=== PATIENT | female | born 1985 | race Hispanic/Latino ===

== ENCOUNTER 2017-05-08 01:04 | Inpatient (IN) | payer MEDICAID, OTHER, SELFPAY ==
[2017-05-08] MEDS ORDERED: Fentanyl 4 mcg/Marc 0.1% Cadd 100 ML ONE (01:42)
[2017-05-08] MEDS ORDERED: Ondansetron HCl/PF 4 MG/2 ML Vial IVP PRN ×2 (01:47→03:17)
[2017-05-08] MEDS ORDERED: Acetaminophen 500 MG TAB PO PRN (01:47)
[2017-05-08] MEDS ORDERED: LR / Pitocin 40 units/1000 ml 1,000 ML IV PRN (01:47)
[2017-05-08] MEDS ORDERED: Lidocaine 1% (PF) 30 ML VIAL SC PRN (01:47)
[2017-05-08] MEDS ORDERED: Ibuprofen 800 MG TAB PO PRN (01:47)
[2017-05-08] MEDS ORDERED: Promethazine HCl 25 MG/ML VIAL IM PRN ×2 (01:47→03:17)
[2017-05-08 01:56] VITALS: BMI 36.6
[2017-05-08] MEDS ORDERED: Lactated Ringer's 1,000 ML IV SCH (02:00)
[2017-05-08 02:23] LABS: Hematocrit 35.7 % (36.0-47.0); Mean Platelet Volume 9.3 fL (7.4-10.4); White Blood Cell (WBC) Count 8.6 thou/uL (4.8-10.8)
[2017-05-08] MEDS ORDERED: Acetaminophen 325 MG TAB PO PRN (03:17)
[2017-05-08] MEDS ORDERED: ePHEDrine/0.9% NaCl/PF SYRINGE 50 mg/10 ml SLOW IVP PRN (03:17)
[2017-05-08] MEDS ORDERED: Eucerin (Mineral Oil/Petrolatum,White) 30 gm Jar TOP PRN (03:17)
[2017-05-08] MEDS ORDERED: Lactated Ringer's 500 ML IV PRN (03:17)
[2017-05-08] MEDS ORDERED: diphenhydrAMINE 50 MG/ML VIAL IVP PRN (03:17)
[2017-05-08] MEDS ORDERED: Naloxone HCl 0.4 mg/ml Vial IVP PRN ×2 (03:17)
[2017-05-08] MEDS ORDERED: Fentanyl 4mcg/Marcaine 0.1% Cassette 100 ML EPIDURAL SCH (03:30)
[2017-05-08] MEDS ORDERED: Communication Order-Pharmacy FS SCH (03:30)
--- NOTE | 2017-05-08 03:43 | PDOC.LDPN ---
Labor & Delivery Progress Note - Subjective Subjective: comfortable (epidural placed) - Objective Vital signs reviewed and normal: yes General: NAD, resting SVE: @ 0330 Dilation: 4 Effacement: 75% Station: -3 FHT: category 1 (mod nika/ baseline 140), variability present [place] contractions every: 4-5 min - Assessment (1) Term Code(s): Z34.80 - ENCOUNTER FOR SUPRVSN OF NORMAL , UNSP TRIMESTER Current Visit: Yes Status: Acute Comment: TIUP - SROM, ctx q 3-5 minutes 4/60/-[address] -cervical checks q2h -LR @ 125 Plan: continue plan of care <Bere Sylvester - Last Filed: 05/08/17 03:41> Attending Addendum - Attending Addendum I revewed the course of labor and discussed the management with Dr. Sylvester on DOS 05/08/17. I agree with the History, Examination, Assessment and Plan documented above with any addition or exceptions noted below. [facility] <Leoncio Marte - Last Filed: 05/09/17 11:38>
--- NOTE | 2017-05-08 06:53 | PDOC.LDPN ---
Labor & Delivery Progress Note - Subjective Subjective: comfortable - Objective Vital signs reviewed and normal: yes General: resting Uterine fundus: non tender SVE: @ 0615 Dilation: 7 Effacement: 75% Station: -2 FHT: category 1, early decelerations, variability present (mod variability) [place] contractions every: 3-5 minutes - Assessment (1) Term Code(s): Z34.80 - ENCOUNTER FOR SUPRVSN OF NORMAL , UNSP TRIMESTER Current Visit: Yes Status: Acute Comment: TIUP - SROM, ctx q 3-5 minutes /-[address], resting comfortably -cervical checks q2h -LR @ 125 Plan: continue plan of care <Bere Sylvester - Last Filed: 05/08/17 06:51> Attending Addendum - Attending Addendum I reveiwed the course of labor and discussed the management with Dr. Raysa Sylvester on DOS 05/08/17. I agree with the History, Examination, Assessment and Plan documented above with any addition or exceptions noted below. [facility] <Leoncio Marte - Last Filed: 05/09/17 11:41>
[2017-05-08] MEDS ORDERED: FLU VACC QS2017-18 36 mo. & older 0.5 ML SYRINGE IM ONE (09:00)
[2017-05-08] MEDS ORDERED: Lanolin Ointment 7 GM TUBE TOP PRN (09:18)
[2017-05-08] MEDS ORDERED: LR / Pitocin 40 units/1000 ml 1,000 ML IV SCH (09:18)
[2017-05-08] MEDS ORDERED: Bisacodyl 10 MG SUPP PR PRN (09:18)
[2017-05-08] MEDS ORDERED: Milk Of Magnesia 30 ML UDCUP PO PRN (09:18)
--- NOTE | 2017-05-08 09:41 | PDOC.OPDEL ---
OB Operative/Delivery Note Delivery Dr/Surgeon: Bere Sylvester MD, Mya Brady MD, Leoncio Marte MD Pre-Delivery Diagnosis: active labor Procedure/Post Delivery Dx: spontaneous vaginal delivery (@ 0814 on 05/08/17) Weeks gestation: 38 ( @ 38.4) Anesthesia: epidural - Findings A Sex: male Weight: 4.115 kg - 1 min: 8 - 5 min: 9 - Additional Findings/Plan Placenta delivered: spontaneous Repaired Obstetrical Laceration: 1st degree (Hemostatic, did not require repair) Estimated blood loss: 250 mL Post delivery plan: routine recovery <Bere Sylvester - Last Filed: 05/08/17 09:39> Attending Addendum - Attending Addendum I was personally present for the entire spontaneous vaginal delivery and supervised the delivery management by Drs. Raysa Sylvester and Marco Brady. I agree with the History, Examination, Assessment and Plan documented above with any addition or exceptions noted below. <Leoncio Marte - Last Filed: 05/09/17 11:53>
[2017-05-08] MEDS: Ibuprofen 800 MG TAB PO PRN (10:38)
[2017-05-08] MEDS: Docusate Calcium (SURFAK) 240 MG CAP PO SCH ×2 (10:38→20:06)
[2017-05-08] MEDS: Prenatal Vitamin 1 TAB PO SCH (10:38)
[2017-05-08] MEDS: Ferrous Sulfate 325 MG TAB PO SCH (18:11)
[2017-05-08] MEDS ORDERED: Lidocaine 2% MPF 10 ML AMP (For Epidural Use) ONE (20:46)
[2017-05-09] MEDS: Ibuprofen 800 MG TAB PO PRN (00:23)
[2017-05-09 05:07] LABS: Hematocrit 32.9 % (36.0-47.0); Mean Platelet Volume 8.7 fL (7.4-10.4); Red Blood Cell (RBC) Count 3.65 mill/uL (4.20-5.40); White Blood Cell (WBC) Count 9.7 thou/uL (4.8-10.8)
--- NOTE | 2017-05-09 06:45 | PDOC.PP ---
Post Progress Note Post Day #: 1 PO intake tolerated: yes Flatus: no Ambulation: yes Vital Signs (12 hours) Temp Pulse Resp BP 05/08/17 20:00 98.2 F 81 18 123/64 Weight Weight 93.894 kg - Physical Examination General: NAD Cardiovascular: no m/r/g, RRR Respiratory: clear to auscultation bilaterally, non-labored breathing Abdominal: + bowel sounds, lochia, no distention, appropriately TTP Skin: no rash Neurological: no gross focal deficits Psychiatric: A&Ox3, normal affect Result Diagrams: 05/09/17 04:43 Additional Labs: Post Labs Blood Type A POSITIVE 05/08/17 01:45 Hep Bs Antigen Non-Reactive S/CO (NonReactive) 05/08/17 01:45 (1) Normal spontaneous vaginal delivery Code(s): O80 - ENCOUNTER FOR FULL-TERM UNCOMPLICATED DELIVERY Status: Acute Comment: PPD #1. Multiparous. Doing well overall. Lochia is minimal. Pain well controlled with motrin. Eating well. No trouble going to the bathroom. Ambulating normally. To follow up with [facility] in 2-4 weeks. D/c home today. <Mya Brady - Last Filed: 05/09/17 11:13> Vital Signs (12 hours) Temp Pulse Resp BP 05/09/17 08:00 98.1 F 79 18 120/63 05/09/17 04:00 98.2 F 81 18 Weight Weight 93.894 kg Result Diagrams: 05/09/17 04:43 Additional Labs: Post Labs Blood Type A POSITIVE 05/08/17 01:45 Hep Bs Antigen Non-Reactive S/CO (NonReactive) 05/08/17 01:45 <Leoncio Marte - Last Filed: 05/09/17 12:38> Attending Addendum - Attending Addendum I personally evaluated the patient and discussed the management with Dr. Brady. I agree with the History, Examination, Assessment and Plan documented above with any addition or exceptions noted below. Exam as above. A: Stable P: D/C home today to f/u Clinic for checkup. [facility] <Leoncio Marte - Last Filed: 05/09/17 12:38>
[2017-05-09 08:53] VITALS: BP 120/63; TEMP 98.1
[2017-05-09] MEDS ORDERED: Adacel (T-DAP) 0.5 ML VIAL IM ONE (09:00)
[2017-05-09] MEDS: Ferrous Sulfate 325 MG TAB PO SCH (09:17)
[2017-05-09] MEDS: Prenatal Vitamin 1 TAB PO SCH (09:17)
[2017-05-09] MEDS: Docusate Calcium (SURFAK) 240 MG CAP PO SCH (09:17)
== END 2017-05-09 12:30 | disposition home or self-care (01) | DRG 775 ==
LOC: L&D/OP 01:04 → L&D 01:31 → 3SW 11:12
PROVIDERS: ADMIT Family Medicine; ATTEND Family Medicine
PROC: 10E0XZZ Delivery of Products of Conception, External Approach (ICD-10-PCS; principal; 2017-05-08)
DX: O70.0 First degree perineal laceration during delivery (principal); Z37.0 Single live birth; Z3A.38 38 weeks gestation of pregnancy; Z67.10 Type A blood, Rh positive
CPT/HCPCS: 36415; 36416; 85027; 86780; 87340; 87389; J2001